=== PATIENT | female | born 2000 | race Caucasian/White ===

== ENCOUNTER 2021-12-03 11:39 | Day surgery (SDC) | payer OTHER, SELFPAY ==
[2021-12-03] VITALS (7 sets, daily range): BP systolic 92–139; BP diastolic 50–81; PULSE 58–94; RESP 12–18; TEMP 36.3–37.4; O2SAT 97–100; BMI 19.8
--- NOTE | 2021-12-03 | PATH_ITS ---
[facility] Accession Number: [id number] No. of containers..02 Tissue . 01 Material submitted: . PART A: duodenum - DUODENUM PART B: stomach - ANTRUM . 01 Clinical history: . SDC ABNORMAL WEIGHT LOSS MELENA UNSPECIFIED ABDOMINAL PAIN . 01 Diagnosis: A. Duodenum, Biopsy: Duodenal mucosa with focal patchy mildly increased intraepithelial lymphocytes, with preserved villous architecture; see comment. . B. Stomach, Antrum, Biopsy: Gastric mucosa with focal minimal chronic nonspecific inflammation. No evidence of Helicobacter pylori organisms on H/E slide evaluation. MRV 12/05/2021 1303 Local . 01 Comment: A.The presence of mildly increased intraepithelial lymphocytes is a nonspecific finding and may be associated with early onset or previously treated celiac sprue, as well as with Helicobacter pylori infection or peptic injury. It may also be seen in association with NSAID therapy, small bowel bacterial overgrowth, non-gluten protein allergies, or certain autoimmune diseases (example, autoimmune enteropathy, autoimmune gastritis, diabetes, rheumatoid arthritis). If celiac disease is suspected clinically, correlation with serologic studies is recommended. . 01 Electronically signed: . Cherrie Goldstein MD, Pathologist NPI- [id number] . 01 Gross description: . Part A: DUODENUM: Received in formalin are 4 fragment(s) of blevins, soft tissue measuring 0.4 x 0.2 x 0.1 cm to 0.2 x 0.1 x 0.1 cm submitted entirely in 1 cassette(s) Part B: ANTRUM: Received in formalin is 1 fragment(s) of blevins, soft tissue measuring 0.2 x 0.1 x 0.1 cm submitted entirely in 1 cassette(s) /CPE 12/04/2021 0600 Local . 01 Pathologist provided ICD-10: K31.89, K29.30 . 01 CPT . 452989, [id number] Specimen Comment: A courtesy copy of this report has been sent to [phone] Performed at: 01 [facility] [address] [place] [address], [place], [place] [id number] MD Cheikh Jones MD Phone: [phone]
[2021-12-03 12:22] LABS: COVID19 -Nasal RAPID Negative (Negative)
[2021-12-03] MEDS: DEXTROSE 5% WATER 1,000 ML 84 ML IV (12:51)
--- NOTE | 2021-12-03 13:09 | PM.HP.1 ---
History of Present Illness History of Present Illness Date Patient Seen: 12/03/21 Time Patient Seen: 13:14 Chief complaint: SDC Narrative: I reviewed my note from September. No significant changes. Patient leans a little bit towards the constipation side of the spectrum. Celiac serology was drawn but I have not seen these results nor has Navneet. Patient History Medical History Generalized pain Marijuana use Weight loss Family & Social History Social History: household members spouse Tobacco & Substance use: Tobacco type cannabis/marijuana Smoking Status Current every day smoker alcohol intake former Substance Use Type marijuana Meds Home Medications and Allergies Home Medications Medication Instructions Recorded Confirmed Type No Known Home Medications 12/03/21 12/03/21 History Allergies Allergy/AdvReac Type Severity Reaction Status Date / Time lactose Allergy Intermediate Diarrhea Verified 12/03/21 12:48 latex Allergy Mild Mild Rash Verified 12/03/21 12:48 Review of Systems Review of Systems ROS: Yes All systems reviewed with the patient and are negative except as otherwise documented Exam Vital Signs (past 8 hours): - 12/03/21 12:30 Temperature 99.4 F Pulse Rate 94 H Respiratory Rate 16 Blood Pressure 139/81 Pulse Oximetry 100 Oxygen Delivery Method Room Air Oxygen Delivery Method Room Air Const General: cooperative HENMT Head: normal to inspection Eyes General: appearance normal, both eyes and all related structures Neck Neck: normal visual inspection Chest Chest: normal inspection of the chest Resp Effort & Inspection: normal respiratory effort Cardio Rate: regular rate GI Inspection: normal to inspection Skin General: no rashes or lesions noted Neuro General: patient alert and patient awake Extrem General: normal to inspection and no pedal edema Psych Appearance: grossly normal Objective Labs Labs: Laboratory Results - last 24 hr 12/03/21 11:59 SARS-CoV-2 (PCR) Negative Assessment & Plan Assessment & Plan narrative: 20-year-old female with weight loss intermittent lower abdominal pain. EGD and colonoscopy are pursued today. Time Spent With Patient Critical Care time: I spent a total of [] minutes of critical care time on this patient's care today; this time is exclusive of procedural time.
--- NOTE | 2021-12-03 13:17 | PM.PREOP ---
Pre-operative Note COVID-19 COVID-19 status: Negative Result date/Date tested (Pos, Neg/Pending): 12/03/21 Criteria for continued procedure: Possibility delay results in more complex future surgery or treatment Interval Note History & Physical reviewed/Exam performed by Physician: Yes Changes to H&P: No ASA Class (for procedural sedation): I
--- NOTE | 2021-12-03 14:39 | PM.OP.EC ---
Operative Date/Time/Diagnoses Date of procedure: 12/03/21 Time of procedure: 14:40 Pre-op diagnosis: Weight loss lower abdominal pain Post-op diagnosis: same Procedure & Clinicians Study performed: EGD with biopsies and a colonoscopy Same procedure as scheduled: Yes Indications: Weight loss lower abdominal pain Surgeon: Ricci Salgado Procedure Notes SCOAP/Timeout: Done Procedure in detail: After the risks and benefits were explained, written and verbal informed consent was obtained. The patient was brought into the procedure room and placed into the left lateral decubitus position. Please see nurse dried yeast supervisor notes for sedation details. The scope was introduced into the mouth through the bite block and advanced under direct visualization to the 2nd portion of the duodenum. The scope was slowly withdrawn carefully examining the mucosa for any defects or lesions. Retroflexed views were accomplished in the stomach. The stomach was decompressed, the scope was then removed from the patient who tolerated the procedure well. The patient was then turned around a digital rectal examination accomplished. No significant pathology appreciated. The scope was introduced into the rectum and advanced to the cecum as identified by the appendiceal orifice and ileocecal valve. The terminal ileum was interrogated. The scope was then slowly withdrawn to carefully examine the mucosa for any defects or lesions. Multiple direct views were made through the dentate line for exclusion of pathology. The colon was decompressed, the scope then removed from the patient who tolerated the procedure well. Pediatric colonoscope Bowel prep adequate in the left colon suboptimal in the right colon with copious amounts of semi formed stool. Some areas could not be fully cleansed for a comprehensive mucosal exam. Scope withdrawal time: 8 minutes Sedation minutes: 37 Complications: none Impression: 1. Duodenum: This appeared visually normal from the bulb through to the 2nd portion. Random D2 biopsies were taken for exclusion of sprue. 2. Stomach: No ulcers no outlet obstruction no mass lesions. Mild gastropathy was appreciated and antral biopsies were therefore taken for exclusion of H pylori or other pathology. Retroflexed views of the LES were unremarkable. 3. Esophagus: The squamocolumnar junction correlated with the top of the gastric folds. GEJ was at approximately 44 cm from the incisors. No acute erosive changes no strictures no mass lesions. 4. Terminal ileum: This appeared visually normal. 5. Colon: The patient had scant diverticulosis noted in the left colon. Prep conditions were a little suboptimal in the right colon. Slightly tortuous navigation through the sigmoid. No significant polyps mass lesions or inflammatory features identified throughout. Endoscopic diagnosis 1. Mild gastropathy 2. Otherwise visually unremarkable EGD 3. Mild diverticulosis 4. Slightly tortuous left colon 5. Otherwise visually unremarkable colonoscopy and terminal ileoscopy. Post-procedure Plan for aftercare: 1. Await histopathology. 2. If Helicobacter is found it will need to be eradicated with standard triple therapy. 3. A fiber based bowel regimen is emphasized for soft regular evacuations. 4. Follow up GI clinic any time as needed. Disposition: PACU
== END 2021-12-03 15:30 | disposition home or self-care (01) ==
PROVIDERS: Referring Provider Internal Medicine Gastroenterology; Visit Provider Internal Medicine Gastroenterology
PROC: 0DJ08ZZ Inspection of Upper Intestinal Tract, Via Natural or Artificial Opening Endoscopic (ICD-10-PCS; CPT 43235; principal; 2021-12-03 13:30)
PROC: 0DJD8ZZ Inspection of Lower Intestinal Tract, Via Natural or Artificial Opening Endoscopic (ICD-10-PCS; CPT 45378; 2021-12-03 13:30)
DX: R10.30 Lower abdominal pain, unspecified (principal); R63.4 Abnormal weight loss; Z20.822 Contact with and (suspected) exposure to COVID-19; K31.9 Disease of stomach and duodenum, unspecified; K57.30 Diverticulosis of large intestine without perforation or abscess without bleeding; K29.30 Chronic superficial gastritis without bleeding; K31.89 Other diseases of stomach and duodenum
CPT/HCPCS: 43239; 45378; 87635; C9803; J2250; J2704; J3010

== ENCOUNTER → 2024-07-06 10:34 | Outpatient (CLI) | payer OTHER, SELFPAY ==
--- NOTE | 2024-07-06 10:36 | DI.US.S_ITS ---
LIMITED ULTRASOUND OF LEFT BREAST: 07/06/2024 CLINICAL: Palpable left breast tender lump x 3 years (noticed after removing nipple piercings). Pain increasing. No prior exams were available for comparison. Color flow and real-time ultrasound of the left breast 5-7 o'clock region were performed. De [place] scale images of the real-time examination were reviewed. There is a 5.8 cm x 2.4 cm x 0.8 cm area of fibroglandular tissue with an indistinct margin in the left breast at 6 o'clock middle depth 7 cm from the nipple. This area of fibroglandular tissue is hypoechoic. This correlates to the reported pain. Color flow imaging demonstrates that there is vascularity present. This is located just deep to the skin. No hyperemia demonstrated. No similar finding on the contralateral right breast. IMPRESSION: PROBABLY BENIGN The 5.8 cm area of hypoechoic fibroglandular tissue in the inferior left breast is probably benign. Differential diagnosis of phlegmon. Exam findings were conveyed to the patient. Patient is advised to monitor for significant change. Clinical follow-up is recommended. A follow-up ultrasound in 3-6 months is recommended to demonstrate stability. This exam was interpreted at Station ID: [id number]. Electronically Signed By: Aaron Gonzalez M.D. [facility] [place]07[place]06/2024 11:44:11 letter sent: Followup Recommended ACR BI-RADS Category 3: Probably Benign
== END ==
PROVIDERS: Referring Provider Nurse Practitioner Family; Visit Provider Nurse Practitioner Family
DX: N64.4 Mastodynia (principal)
CPT/HCPCS: 76642